=== PATIENT | female | born 1945 | race American Indian/Alaskan Native ===

== ENCOUNTER 2016-03-22 14:19 | Outpatient (CLI) | payer MEDICARE ==
--- NOTE | 2016-03-22 15:42 | XRay Report ---
RIGHT SHOULDER: Routine views demonstrate normal bony and soft tissue structures with normal joint alignment of the shoulder. IMPRESSION: Normal study.
== END 2016-03-22 14:20 | disposition home or self-care (01) ==
LOC: SPVIMAG 14:19
PROVIDERS: ATTEND Internal Medicine
DX: M25.511 Pain in right shoulder (principal)

== ENCOUNTER 2016-05-30 10:41 | Outpatient (CLI) | payer MEDICARE ==
[2016-05-30 11:29] LABS: Blood Urea Nitrogen 11 mg/dL (7-17)
[2016-05-30] MEDS ORDERED: NACL ONE (11:52)
--- NOTE | 2016-05-30 14:05 | Cat Scan Report ---
CTA abdomen and pelvis: Followup right renal artery aneurysm. Transverse images are obtained from lower chest to the ischium. Coronal and sagittal 2-D reformatted images as well as 3-D image MIP image. Comparison made to prior study of November 22, 2015. The visualized lungs and abdominal organs are unremarkable. 3 left renal cysts. Unopacified bowel and mesentery are unremarkable. Severe degenerative narrowing and spondylosis at L5-S1 and mild degenerative changes at T12-L1. The abdominal aorta is normal in size and contour. Normal major branches identified and patent. Single left renal artery is unremarkable. There is a single right renal artery. There is an eccentric non-thrombosed arterial aneurysm at the renal hilum extending inferiorly from the renal with a portion of the rico being heavily calcified. It measures approximately 2.6 cm in size. There is good renal vascularization.The aneurysm diameter measures within 1 mm of prior examination. The remaining findings as described above are all unchanged. Impression: 1. Stable right renal artery aneurysm. 2. Stable left renal cysts. 3. Stable degenerative lumbar spine changes.
== END 2016-05-30 10:42 | disposition home or self-care (01) ==
LOC: CT 10:41
PROVIDERS: ATTEND Surgery Vascular Surgery
DX: I72.2 Aneurysm of renal artery (principal); I70.1 Atherosclerosis of renal artery; N28.1 Cyst of kidney, acquired; M47.897 Other spondylosis, lumbosacral region; M47.895 Other spondylosis, thoracolumbar region
CPT/HCPCS: 36415; 74174; 82565; 84520; Q9967

== ENCOUNTER 2017-08-14 11:18 | Outpatient (CLI) | payer MEDICARE ==
[2017-08-14 11:46] LABS: Blood Urea Nitrogen 10 mg/dL (7-17)
--- NOTE | 2017-08-14 15:55 | Cat Scan Report ---
CT ANGIOGRAM ABDOMEN AND PELVIS History: Atherosclerosis of renal artery. Technique: Helical CT was performed in 1.25 mm intervals following IV contrast. Sagittal and coronal reformatted images. 3-dimensional volume rendering technique. Comparison: 05/30/16. Findings: Heart size is normal. No pericardial effusion. The visualized lung bases are adequately aerated. The visualized descending thoracic aorta and abdominal aorta are normal caliber and without significant atherosclerotic disease. There is less than 10% stenosis. No evidence for aneurysm or dissection. The celiac axis, SMA and KRYSTAL are widely patent with less than 20% stenosis. Bilateral single renal arteries are identified originating at the approximate level of L1. There is no evidence for renal artery stenosis or fibromuscular changes. The previously described nonthrombosed right renal artery aneurysm is unchanged at 2.6 cm. No evidence for internal thrombus or extravasation. There is mild fatty change throughout the liver. No evidence for focal mass or surface nodularity. The biliary system, pancreas, spleen, right kidney and adrenal glands are unremarkable. There are a few simple cortical cysts in the left kidney measuring up to 1 cm which are unchanged. The ureters and bladder are unremarkable. There is extensive diverticulosis of the sigmoid colon. Otherwise the bowel loops are unremarkable given no oral contrast was administered. Normal appendix. IMPRESSION: No evidence for stenosis. 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 Mild hepatic steatosis. Sigmoid diverticulosis. Scattered left renal cysts. No change is appreciated since 05/30/16.
== END 2017-08-14 11:19 | disposition home or self-care (01) ==
LOC: CT 11:18
PROVIDERS: ATTEND Surgery Vascular Surgery
DX: N28.1 Cyst of kidney, acquired (principal); I72.2 Aneurysm of renal artery; I70.1 Atherosclerosis of renal artery; K76.0 Fatty (change of) liver, not elsewhere classified; K57.30 Diverticulosis of large intestine without perforation or abscess without bleeding; I10 Essential (primary) hypertension; Z90.710 Acquired absence of both cervix and uterus
CPT/HCPCS: 36415; 74174; 82565; 84520; Q9967

== ENCOUNTER 2017-09-24 12:51 | Outpatient (CLI) | payer MEDICARE ==
--- NOTE | 2017-09-24 15:16 | Mammography Report ---
RIGHT DIGITAL DIAGNOSTIC MAMMOGRAM: 09/24/17 12:51:00 CLINICAL: For clip placement immediately status post ultrasound biopsy. COMPARISON:None available. FINDINGS: A biopsy clip is now identified at 1 o'clock near the nipple and a biopsy clip is identified within an enlarged axillary lymph node. IMPRESSION: Concordant clip placement status post ultrasound biopsy. BI-RADS CATEGORY: 4--Suspicious Pathology pending.
--- NOTE | 2017-09-24 15:32 | Ultrasound Report ---
ULTRASOUND GUIDED NEEDLE CORE BIOPSY WITH CLIP PLACEMENT RIGHT BREAST AND ULTRASOUND GUIDED NEEDLE CORE BIOPSY OF A RIGHT AXILLARY LYMPH NODE : 09/24/17 CLINICAL: Right breast mass and suspicious enlarged right axillary lymph node. COMPARISON :Volodymyr Bradley FINDINGS: The procedure was explained to the patient and informed consent was obtained. Ultrasound demonstrated the previously described 6 mm mass at 1:30 o'clock 2 cm from the nipple. The skin was prepped with Betadine and anesthetized with 1% lidocaine. Ultrasound needle core biopsy was performed through a small dermatotomy using ultrasound guidance, 2% lidocaine with epinephrine for deep anesthesia and a 14-gauge Achieve biopsy device. 4 cores were obtained and placed in formalin. A localizer clip was deployed within the lesion. The skin in the axilla was prepped with Betadine and anesthetized with 1% lidocaine. Ultrasound guided needle core biopsy of the previously described enlarged abnormal lymph node was performed through a small dermatotomy using 2% lidocaine with epinephrine for deep anesthesia and a 18-gauge Achieve biopsy device. 2 samples were obtained and placed in formalin. A clip was deployed within the lymph node. Hemostasis was obtained at both sites with minimal pressure and sterile dressings were applied. The patient tolerated the procedure well and there were no apparent complications. She was discharged in good condition and was given instructions for wound care and followup. IMPRESSION: Uncomplicated ultrasound-guided needle core biopsy of a right breast mass and uncomplicated needle core biopsy of right axillary lymph node.
== END 2017-09-24 12:52 | disposition home or self-care (01) ==
LOC: SPVWC 12:51
PROVIDERS: ATTEND Surgery
DX: D05.11 Intraductal carcinoma in situ of right breast (principal); I10 Essential (primary) hypertension; Z17.0 Estrogen receptor positive status [ER+]; Z79.899 Other long term (current) drug therapy; Z91.010 Allergy to peanuts; Z91.09 Other allergy status, other than to drugs and biological substances; Z90.710 Acquired absence of both cervix and uterus; Z98.890 Other specified postprocedural states
CPT/HCPCS: 19083; 38505; 77065; 88305; 88342; 88361; A4648; 76942

== ENCOUNTER 2017-10-11 12:03 | Outpatient (CLI) | payer MEDICARE ==
[2017-10-11 12:50] LABS: Blood Urea Nitrogen 8 mg/dL (7-17)
== END 2017-10-11 12:04 | disposition home or self-care (01) ==
LOC: LAB 12:03
PROVIDERS: ATTEND Surgery
DX: C50.411 Malignant neoplasm of upper-outer quadrant of right female breast (principal); I10 Essential (primary) hypertension; Z90.710 Acquired absence of both cervix and uterus
CPT/HCPCS: 36415; 82565; 84520

== ENCOUNTER 2017-10-12 10:12 | Outpatient (CLI) | payer MEDICARE ==
--- NOTE | 2017-10-16 13:46 | Magnetic Resonance Report ---
BILATERAL BREAST MRI WITHOUT AND WITH CONTRAST: 10/12/17 10:12:00 CLINICAL: Newly diagnosed right breast cancer. Status post right ultrasound-guided needle biopsy 09/24/17 with pathologic diagnosis of low-grade DCIS associated with a papillary lesion with a focus suspicious for invasion. Biopsy of a right axillary lymph node on the same day revealed benign lymph node tissue negative for metastatic carcinoma. COMPARISON:Right mammogram and right breast ultrasound 09/24/17. Her previous mammograms are from [facility]. TECHNIQUE: Axial 1.0-mm T1 without, axial high resolution 2.0-mm T2 and axial 1.0-mm dynamic Vibrant high-resolution postcontrast T1 fat saturation sequences on a 1.5 [place] magnet. The examination was performed with an 8 channel dedicated Sentinelle breast coil. Post processing with CAD and subtraction was performed on an [employer] workstation. 17.0 cc of Multihance was injected without incident for the contrast portion of the exam. Consent was obtained prior to the administration of the contrast. FINDINGS: Right: Minimal background parenchymal enhancement. The known cancer is an oval slightly irregular enhancing mass at 1 o'clock 3 cm from the nipple. It measures 5.1 x 4.1 x 3.4 mm. A biopsy clip is identified at its margin. The mass demonstrates heterogeneous enhancement with mixed kinetics, 86% peak enhancement, 24% type I persistent, 76% type II plateau and 0% type III washout waveforms. No other mass or suspicious enhancement of the right breast. A 1.7 cm level I axillary lymph node contains a biopsy clip and correlates with the biopsied lymph node. No other lymph nodes are suspicious. Left: Minimal background parenchymal enhancement. No mass or suspicious enhancement. No suspicious lymph nodes. IMPRESSION: 1. Known 5.1 mm right breast cancer at 1 o'clock 3 cm from the nipple. 2. No other suspicious lesion of either breast. 3. No suspicious lymph nodes. RIGHT BI-RADS 6 -- Known Cancer LEFT BI-RADS 1 -- Negative
== END 2017-10-12 10:13 | disposition home or self-care (01) ==
LOC: SPVIMAG 10:12
PROVIDERS: ATTEND Surgery
DX: C50.411 Malignant neoplasm of upper-outer quadrant of right female breast (principal); I10 Essential (primary) hypertension; Z90.710 Acquired absence of both cervix and uterus
CPT/HCPCS: A9577; C8908; 77059

== ENCOUNTER 2017-11-14 07:10 | Day surgery (SDC) | payer MEDICARE ==
[2017-11-14] MEDS ORDERED: XYLOCAINE 1% 20 mL INFILTRATI ONE (08:16)
[2017-11-14] MEDS ORDERED: ANCEF/STERILE WATER 2 GM/20 ML IV NR (08:22)
[2017-11-14] MEDS ORDERED: SUBLIMAZE ONE (08:47)
[2017-11-14] MEDS ORDERED: MARCAINE 0.5% INFILTRATI ONE (08:47)
[2017-11-14] MEDS ORDERED: VERSED ONE (08:47)
[2017-11-14] MEDS ORDERED: DILAUDID IV PRN (08:53)
[2017-11-14] MEDS ORDERED: ZOFRAN IV PRN (08:53)
[2017-11-14] MEDS ORDERED: LACTATED RINGERS 1,000 ML IV SCH ×2 (09:00→10:00)
[2017-11-14] MEDS ORDERED: PEPCID IV NR (09:00)
[2017-11-14] MEDS ORDERED: NEURONTIN PO NR (09:00)
[2017-11-14] MEDS ORDERED: LACTATED RINGERS 1,000 ML ONE ×2 (09:07→11:53)
[2017-11-14] MEDS ORDERED: DIPRIVAN 10 MG/ML IV ONE (09:35)
[2017-11-14] MEDS ORDERED: DILAUDID ONE (09:35)
--- NOTE | 2017-11-14 09:55 | Anesthesia Day of Surgery ---
Anesthesia Day of Surgery - Day of Surgery Patient Examined: Yes Patient H&P Reviewed: Yes Patient is NPO: Yes
--- NOTE | 2017-11-14 09:55 | Anesthesia Consultation ---
Anesthesia Consult and Med Hx Date of service: 11/14/17 - Airway Anesthetic Teeth Evaluation: Good ROM Head & Neck: Adequate Mental/Hyoid Distance: Adequate Mallampati Class: Class I Intubation Access Assessment: Good - Pulmonary Exam CTA: Yes - Cardiac Exam Cardiac Exam: RRR - Pre-Operative Health Status ASA Pre-Surgery Classification: ASA3 Proposed Anesthetic Plan: General (Gerd controlled, HTN) - Pulmonary Hx Pneumonia: No - Cardiovascular System Hx Hypertension: Yes (15 YEARS) - Central Nervous System Hx Psychiatric Problems: No - Other Systems Hx Alcohol Use: No Hx Substance Use: No Hx Cancer: Yes
--- NOTE | 2017-11-14 10:15 | Mammography Report ---
NEEDLE LOCALIZATION AND HOOKWIRE PLACEMENT RIGHT BREAST:11/14/17 CLINICAL: Right breast cancer. COMPARISON: 09/24/17 FINDINGS: Using mammographic guidance, 1% lidocaine local anesthesia and sterile technique, a 5.0-cm Cody needle with a hookwire was placed from a CC from above approach to localize a biopsy clip. The hookwire was deployed and the needle was removed. Satisfactory placement was confirmed on two orthogonal views. The patient tolerated the procedure well and there were no apparent complications. IMPRESSION: Uncomplicated hookwire placement right breast.
[2017-11-14] MEDS ORDERED: NEO SYNEPHRINE/NS Syringe(OR USE) IV ONE (10:22)
[2017-11-14] MEDS ORDERED: WATER FOR IRRIG STERILE IR ONE (11:00)
[2017-11-14] MEDS ORDERED: DECADRON ONE (11:41)
--- NOTE | 2017-11-14 12:39 | Short Stay Summary ---
Short Stay Documentation Date of service: 11/14/17 - History H&P: obtained from office - Allergies and Medications Current Medications: Allergies peanut Allergy (Verified 11/06/17 17:34) Anaphylaxis LATEX GLOVES Allergy (Uncoded 11/06/17 17:34) Rash LATEX TAPE Allergy (Uncoded 11/06/17 17:34) Rash Home Medications Medication Instructions Recorded Confirmed Last Taken Type Aspirin [Aspirin BABY CHEW TAB] 81 mg PO QDAY 11/24/15 11/14/17 11/08/17 History Triamter/Hctz 37.5-25 mg 0.5 tab PO Q48HR 11/24/15 11/14/17 11/13/17 History [Maxzide-25] Cetirizine HCl [ZyrTEC] 10 mg PO DAILY 11/06/17 11/14/17 11/08/17 History Multivit-Min/FA/Lycopen/Lutein 1 tab PO DAILY 11/06/17 11/14/17 11/08/17 History [Centrum Silver Tablet] Om3/Dha/Epa/Cod Liver Oil/A/D3 1 each PO DAILY 11/06/17 11/14/17 11/08/17 History [Cod Liver Oil Softgel] HYDROcodone/APAP 5-325 [[place] 1 each PO Q6HR PRN #30 tablet 11/14/17 Unknown Rx 5/325] Active Medications Cefazolin Sodium (Ancef/Sterile Water 2 Gm/20 Ml) 2 gm IV PREOP NR Stop: 11/14/17 23:59 Famotidine (Pepcid) 20 mg IV PREOP NR Stop: 11/14/17 20:00 Gabapentin (Neurontin) 150 mg PO PREOP NR Stop: 11/14/17 20:00 Hydromorphone HCl (Dilaudid) 0.5 mg IV Q10MIN PRN PRN Reason: Pain , Severe (7-10) Stop: 11/14/17 20:00 Lactated Ringer's (Lactated Ringers) 1,000 mls @ 100 mls/hr IV DIRECT TONIA Ondansetron HCl (Zofran) 4 mg IV ONCE PRN PRN Reason: Nausea And Vomiting Stop: 11/14/17 20:00 - Brief post op/procedure progress note Date of procedure: 11/14/17 Pre-op diagnosis: Right breast cancer of the upper inner quadrant Post-op diagnosis: same Procedure: Right needle localization partial mastectomy with SLNB Anesthesia: GETA Findings: Wire and clip present within radiograph specimen; 2 SLNs Surgeon: JOSEPHINE REEVES Estimated blood loss: minimal Pathology: list (right partial mastectomy with SLNB) Specimen disposition: to lab Condition: stable - Disposition Condition at discharge: Good Disposition: DC-01 TO HOME OR SELFCARE Short Stay Discharge Plan Activity: other (no heavy lifting) Diet: regular Wound: other (keep incision clean and dry and may shower in 24 hours; no baths, pools or lakes; do not rub or scrub incision; wear breast binder for 72 hours and then may transition to sports bra) Follow up with: JAMMIE GLORIA JR, MD [Primary Care Provider] - 7 Days JOSEPHINE REEVES MD [Staff Physician] - 7 Days Prescriptions: HYDROcodone/APAP 5-325 [[place] 5/325] 1 each PO Q6HR PRN #30 tablet PRN Reason: Pain
--- NOTE | 2017-11-14 12:47 | Operative Report ---
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 Recommendations were to proceed with SLNB given biopsy findings of suspicoius microinvasive cancer. Recommendations are to proceed with breast conservation with SLN staging. She understands the role of adjuvant radiation therapy and Oncotype DX will be obtained by medical oncology if indicated. She wished to proceed with the above procedure. Procedure in detail: The patient was taken to radiology for wire placement for localization of known area of cancer. Anesthesia placed right muscle pectoral block. Patient was then taken to the operating room. Gen. anesthesia was administered. The right nipple was injected with radioisotope. The right breast and axilla were prepped and draped in the normal sterile operative fashion. The wire was identified. Timeout was performed. Gamma probe was inserted into the axilla. The area of hot spot was identified. A right axillary incision was made with a 15 blade knife with dissection taken down to the subcutaneous tissues. The axillary fascia was opened with the Bovie cautery. 2 SLNs were identified. All remaining counts were less than 10% of the highest count. Lymph node was sent to pathology for permanent processing. Hemostasis was obtained in the right axillary cavity. Axillary cavity was appropriately irrigated and suctioned. Hemostasis was noted. Axillary fascia was approximated and closed using interrupted 3-0 Vicryl and the skin brought together and closed using a running 4-0 Monocryl followed by skin affix. Attention was then taken towards the right breast. A medial periareolar breast incision was made with a 15 blade knife and dissection taken down to subcutaneous tissues. First began raising of the medial flap with removal of the wire from the skin with dissection take down to the pectoralis muscle, followed by raising of the superior flap, lateral flap and inferior flap with all flaps taken down to the pectoralis muscle. The breast area of concern was appropriately removed posteriorly anterior to the pectoralis muscle with the aid of the Bovie cautery. The wire was not encountered. The area of concern was removed. Specimen was marked and then sent to pathology and radiology; radiograph specimen with wire and clip present. Breast cavity was irrigated and hemostasis was obtained. The posterior deep breast tissues were approximated and closed using interrupted 3-0 Vicryl. The subcutaneous tissues were approximated and closed using interrupted 3-0 Vicryl followed by closing of the skin with a running 4-0 Monocryl and skin affix. The patient tolerated surgery very well and she was awaken from anesthesia without any complication and transported to PACU in good condition. Discussed with family if margins are positive, will recommend proceeding with a central mastectomy given close proximity to the nipple and will await final pathology.
[2017-11-14] MEDS ORDERED: NORCO 5/325 PO PRN (13:02)
--- NOTE | 2017-11-14 13:15 | Mammography Report ---
SPECIMEN RADIOGRAPH RIGHT BREAST: 11/14/17 07:10:00 CLINICAL: Surgical excision of a known cancer. FINDINGS: The targeted lesion with a localizer clip and a hookwire are identified within the specimen. IMPRESSION: Excision of the targeted lesion.
[2017-11-14 14:02] VITALS: BP 144/74
== END 2017-11-14 07:11 | disposition home or self-care (01) ==
LOC: OR 07:10
PROVIDERS: ATTEND Surgery
DX: D05.11 Intraductal carcinoma in situ of right breast (principal); I10 Essential (primary) hypertension; E78.00 Pure hypercholesterolemia, unspecified; M19.90 Unspecified osteoarthritis, unspecified site; Z79.82 Long term (current) use of aspirin; Z79.899 Other long term (current) drug therapy; Z91.040 Latex allergy status; Z91.010 Allergy to peanuts; Z90.710 Acquired absence of both cervix and uterus; Z96.612 Presence of left artificial shoulder joint; Z85.9 Personal history of malignant neoplasm, unspecified; Z98.890 Other specified postprocedural states
CPT/HCPCS: 19281; 19301; 38525; 64450; 76098; 78800; 88307; 88333; 88342; A9541; J0690; J1100; J1170; J2370; J2704; J3010; J7120; J2250

== ENCOUNTER 2018-03-19 11:05 | Outpatient (CLI) | payer MEDICARE ==
--- NOTE | 2018-03-19 11:34 | Mammography Report ---
Right mammogram: Compared to 09/24/17. CAD study utilized. History: Patient post lumpectomy and radiation right breast. Findings: There is skin thickening noted with post surgical/post radiation changes subareolar area right breast. No microcalcifications or distinct mass. Benign appearing density without interval change right breast. Surgical clips right axilla. Impression: Probably benign findings. 6 month followup recommended. BI-RADS CATEGORY: 3 = Probably benign ACR BI-RADS MAMMOGRAPHIC CODES: 0 = Needs additional imaging evaluation; 1 = Negative; 2 = Benign; 3 = Probably benign; 4 = Suspicious; 5 = Malignant; 6 = Known biopsy-proven malignancy COMMENT: 1. Dense breast tissue, i.e., adenosis, fibrocystic changes, etc., may obscure an underlying neoplasm. 2. Approximately 10% of cancers are not detected with mammography. 3. A negative mammography report should not delay biopsy if a clinically suspicious mass is present. COMMENT: Patient follow-up letters are generated in [employer].
== END 2018-03-19 11:06 | disposition home or self-care (01) ==
LOC: SPVWC 11:05
PROVIDERS: ATTEND Surgery
DX: C50.911 Malignant neoplasm of unspecified site of right female breast (principal); E78.00 Pure hypercholesterolemia, unspecified; I10 Essential (primary) hypertension; M19.90 Unspecified osteoarthritis, unspecified site; Z90.710 Acquired absence of both cervix and uterus

== ENCOUNTER 2018-07-16 10:37 | Outpatient (CLI) | payer MEDICARE ==
--- NOTE | 2018-07-16 11:08 | Mammography Report ---
BILATERAL DIGITAL SCREENING MAMMOGRAM WITH CAD: 07/16/18 10:37:00 CLINICAL: Routine screening.Breast cancer survivor status post right partial mastectomy and radiation therapy. COMPARISON:03/19/18 right mammogram FINDINGS: The right breast is heterogeneously dense with benign retroareolar postsurgical scar and moderate skin thickening. Surgical clips in the right axilla. The left breast is mostly fatty. No mass, architectural distortion or suspicious calcifications. IMPRESSION: No mammographic evidence of malignancy. Benign post treatment changes in the right breast. BI-RADS CATEGORY: 2 -- Benign RECOMMENDATION: Routine mammographic screening in one year. COMMENT: Patient follow-up letters are generated via our [employer] application.
== END 2018-07-16 10:38 | disposition home or self-care (01) ==
LOC: SPVWC 10:37
PROVIDERS: ATTEND Surgery
DX: Z12.31 Encounter for screening mammogram for malignant neoplasm of breast (principal); E78.00 Pure hypercholesterolemia, unspecified; I10 Essential (primary) hypertension; Z90.710 Acquired absence of both cervix and uterus
CPT/HCPCS: 77067

== ENCOUNTER 2019-07-15 12:10 | Outpatient (CLI) | payer MEDICARE ==
--- NOTE | 2019-07-15 13:09 | XRay Report ---
CHEST 2 VIEWS INDICATION: SPASM OF THORACIC BACK MUSCLE. COMPARISON: None FINDINGS: Support devices: None. Heart: Within normal limits. Lungs/pleura: No acute air space or interstitial disease. No pneumothorax. Additional findings: Mild multilevel discogenic DJD and mid thoracic kyphosis. Nothing acute. Left sh oulder arthroplasty is intact. IMPRESSION: 1. No acute findings. Signer Name: Pedro Kenney MD Signed: 07/15/2019 1:05 PM Workstation Name: [id number]
--- NOTE | 2019-07-15 13:10 | XRay Report ---
Thoracic spine-3 views INDICATION: SPASM OF THORACIC BACK MUSCLE. COMPARISON: None. IMPRESSION: Mild mid thoracic kyphosis and minimal dextroscoliosis centered at approximately T6. Mi ld multilevel discogenic DJD. No acute osseous or soft tissue abnormality. Incidental note made of a large gallstone. Signer Name: Pedro Kenney MD Signed: 07/15/2019 1:06 PM Workstation Name: [id number]
== END 2019-07-15 12:11 | disposition home or self-care (01) ==
LOC: SPVIMAG 12:10
PROVIDERS: ATTEND Internal Medicine
DX: M40.294 Other kyphosis, thoracic region (principal); M47.814 Spondylosis without myelopathy or radiculopathy, thoracic region; M62.830 Muscle spasm of back
CPT/HCPCS: 71046; 72070

== ENCOUNTER 2019-07-22 11:25 | Outpatient (CLI) | payer MEDICARE ==
--- NOTE | 2019-07-22 12:11 | Mammography Report ---
DIGITAL SCREENING MAMMOGRAM WITH CAD, 07/22/2019 INDICATION: Routine screening mammography. Personal history of right breast cancer treated with lumpe ctomy. TECHNIQUE: Digital bilateral 2D mammography was obtained in the craniocaudal and mediolateral obliq ue projections. This examination was interpreted with the benefit of Computer-Aided Detection analysi s. COMPARISON: 07/16/2018 FINDINGS: Breast Density: There are scattered areas of fibroglandular density. There is no evidence of dominant mass, suspicious calcifications or architectural distortion in eithe r breast. Postlumpectomy changes are again noted in the right breast. IMPRESSION: Follow up recommendation: Routine yearly BI-RADS Category 2: Benign. A "normal" or negative report should not discourage follow up or biopsy of a clinically significant f inding. A written summary of these findings will be mailed to the patient. The patient will be entered into a mammography reporting system which will generate a reminder letter for the patient's next appointmen t at the appropriate interval. The [employer] recommends yearly mammograms starting at age 40 and continuing as l robert as a woman is in good health. Breast MRI is recommended for women with an approximate 20-25% or greater lifetime risk of breast cancer, including women with a strong family history of breast or ova oral cancer or who have been treated for Hodgkin's disease. Signer Name: Lauren Blanchard MD Signed: 07/22/2019 12:07 PM Workstation Name: [id number]
== END 2019-07-22 11:26 | disposition home or self-care (01) ==
LOC: SPVWC 11:25
PROVIDERS: ATTEND Surgery
DX: Z12.31 Encounter for screening mammogram for malignant neoplasm of breast (principal)
CPT/HCPCS: 77067

== ENCOUNTER 2020-07-27 09:08 | Outpatient (CLI) | payer MEDICARE ==
--- NOTE | 2020-07-27 12:33 | Mammography Report ---
BILATERAL DIGITAL SCREENING MAMMOGRAM WITH CAD WITH TOMOSYNTHESIS HISTORY: Screening mammogram, history of right breast lumpectomy. TECHNIQUE: Routine digital mammographic imaging performed. This examination was interpreted with lincoln caruso benefit of Computer-aided Detection analysis. Tomosynthesis images were acquired and reviewed. COMPARISON: 07/22/2019, 07/16/2018 03/19/2018, 09/24/2017 FINDINGS: Breast Density: scattered fibroglandular appearance of the breast tissue. Digital CC and MLO views demonstrate no mammographic evidence of malignancy. Stable lumpectomy perla e in the right superior subareolar breast. IMPRESSION: No mammographic evidence of malignancy. If the clinical examination remains stable, recommend bilate ral mammogram in approximately one year. BIRADS 2: Benign Finding(s). FURTHER INFORMATION: According to the [employer], yearly mammograms are recommend ed starting at age 40 and continuing as long as a woman is in good health. Clinical Breast Exams shou ld be part of a periodic health exam-about every 3 years for women in their 20s and 30s and every yea r for women 40 and over. Breast self exam is an option for women starting in their 20s. Any breast ch radha noted on a breast self exam should be reported promptly to the patient's healthcare provider. Br east MRI is recommended for women with an approximately 20-25% or greater lifetime risk of breast can cer, including women with a strong family history of breast or ovarian cancer and women who have been treated for Hodgkin's disease. A negative Mammography report should not discourage follow up or biopsy of a clinically significant f inding and/or abnormality. Dense breast tissue may obscure small neoplasms. The patient will be entered into a reminder system with a target due date for the next screening mamm ogram. No Signer Name: Kehinde Miller MD Signed: 07/27/2020 12:29 PM Workstation Name: [id number]
== END 2020-07-27 09:09 | disposition home or self-care (01) ==
LOC: SPVWC 09:08
PROVIDERS: ATTEND Surgery
DX: Z12.31 Encounter for screening mammogram for malignant neoplasm of breast (principal); N64.89 Other specified disorders of breast
CPT/HCPCS: 77063; 77067